=== PATIENT | male | born 1940 | race Caucasian/White ===

== ENCOUNTER 2016-10-08 13:23 | Inpatient (IN) | payer OTHER, MEDICARE ==
[~2016-10-08] VITALS: Ht 177.8 cm; Wt 95.3 kg
--- NOTE | 2016-10-08 13:30 | NUR ---
BIBA FROM HOME FOR COLD/URI SYMPTOMS X5 DAYS. ARRIVES WITH GOOD COLORING, O2 SAT 96% RA AND NO ACTIVE COUGHING OR RESPIRATORY DISTRESS OBSERVED. R SIDED HEMIPARALYSIS/WEAKNESS S/P CVA 2 YEARS AGO. DENIES CP/SOB. OFFERS NO OTHER COMPLAINTS.
--- NOTE | 2016-10-08 13:37 | ED INFLUENZA/URI COMPLAINT ---
History of Present Illness General Chief Complaint: Upper Respiratory Sx/Fever Stated Complaint: BIBA COLD SYMPTOMS X5 DAYS Source: patient Exam Limitations: no limitations Allergies Coded Allergies: No Known Allergies (10/08/16) Reconcile Medications Amlodipine Besylate 5 MG TABLET 1 TAB PO DAILY HTN (Reported) Aspirin (Ecotrin*) 81 MG TABLET.DR 1 TAB PO DAILY HEART HEALTH (Reported) Atorvastatin Calcium 80 MG TABLET 1 TAB PO Q5PM CHOLESTEROL (Reported) Docusate Sodium (Colace) 100 MG CAPSULE 1 CAP PO DAILY STOOL SOFTENER ( Reported) Insulin Regular, Human (Humulin R) 100 UNIT/ML VIAL DIABTETES (Reported) 9AM 11 UNITS, LUNCH 10 UNITS, DINNER 8 UNITS Lisinopril 2.5 MG TABLET 1 TAB PO DAILY HTN (Reported) Metoprolol Tartrate 25 MG TABLET 1 TAB PO BID HTN (Reported) Multivitamin (Multivitamins) 1 EACH CAPSULE 1 TAB PO DAILY VITAMIN (Reported) Omeprazole 20 MG CAPSULE.DR 1 TAB PO DAILY GERD (Reported) Quetiapine Fumarate 25 MG TABLET 1 TAB PO QHS PRN SLEEP (Reported) Triage Note: BIBA FROM HOME FOR COLD/URI SYMPTOMS X5 DAYS. ARRIVES WITH GOOD COLORING, O2 SAT 96% RA AND NO ACTIVE COUGHING OR RESPIRATORY DISTRESS OBSERVED. R SIDED HEMIPARALYSIS/WEAKNESS S/P CVA 2 YEARS AGO. DENIES CP/SOB. OFFERS NO OTHER COMPLAINTS. Triage Nurses Notes Reviewed? yes Onset: Gradual Duration: constant Timing: recent history Severity: moderate Severity Numbers: 5 HPI: Patient is a 76-year-old male with a past medical history of hyperlipidemia hypertension diabetes and stroke 2 years ago with right-sided upper extremity and lower extremity deficit currently wheelchair bound who presents emergency room brought in by ambulance from private residence for concerns of a 5 day history of not feeling well cough chills body aches head congestion and generalized weakness and fatigue. Patient denies any fever, sore throat, chest pain and arm pain jaw pain nausea vomiting palpitations diaphoresis hemoptysis or shortness of breath. Positive sick contacts at home (GISELLE DO,ADRIANA) Vital Signs & Intake/Output Vital Signs & Intake/Output Vital Signs Date Time Temp Pulse Resp B/P Pulse O2 O2 Flow FiO2 Ox Delivery Rate 10/08 1559 92 18 146/84 95 Room Air 10/08 1401 96 Room Air 10/08 1326 99.1 95 18 132/66 98 Room Air Past History Travel History Traveled to [place] past 21 day No Medical History Any Pertinent Medical History? see below for history Neurological: CVA, R SIDED WEAKNESS EENT: NONE Cardiovascular: NONE Respiratory: NONE Gastrointestinal: NONE Hepatic: NONE Renal: NONE Musculoskeletal: NONE Psychiatric: NONE Endocrine: NONE Blood Disorders: NONE Cancer(s): NONE Other Medical Hx: Diabetes, hypertension, hyperlipidemia Surgical History Surgical History: non-contributory Psychosocial History What is your primary language Irish Tobacco Use: Never used Family History Hx Contributory? No (ADRIANA MITCHELL) Review of Systems Review of Systems Constitutional: Reports: see HPI, malaise, weakness. EENTM: Reports: no symptoms. Respiratory: Reports: see HPI, cough. Cardiovascular: Reports: no symptoms. GI: Reports: no symptoms. Genitourinary: Reports: no symptoms. Musculoskeletal: Reports: no symptoms. Skin: Reports: no symptoms. Neurological/Psychological: Reports: no symptoms. Hematologic/Endocrine: Reports: no symptoms. Immunologic/Allergic: Reports: no symptoms. All Other Systems: Reviewed and Negative (ADRIANA MITCHELL) Physical Exam Physical Exam General Appearance: no apparent distress, alert, comfortable Ears, Nose, Throat: normal ENT inspection, moist mucous membrane, hearing grossly normal, Tympanic normal Comments: person in no acute distress HEENT: Normal EENT exam, extraocular motion intact, no nystagmus. Pupils equally round and reactive to light and accommodation. Nose is atraumatic. External auditory canal and Tympanic membranes clear. Pharynx normal. No swelling or edema. Neck: Supple, no lymphadenopathy, normal range of motion without pain or tenderness Back: Nontender, no CVA tenderness. Cardiovascular: Regular rate and rhythms no murmurs rubs or gallops, normal JVP Respiratory: Chest nontender. No respiratory distress. Decreased breath sounds clear to auscultation bilaterally Abdomen: Soft, nontender nondistended, no appreciable organomegaly. Normal bowel sounds. No ascites Extremity: No edema, no calf tenderness to palpation, normal and equal pulses. Neuro: Alert oriented x3, Skin: No appreciable rash on exposed skin, skin is warm and dry. Psych: Mood and affect is normal, memory and judgment is normal. Core Measures Severe Sepsis Present: No Septic Shock Present: No (ADRIANA MITCHELL) Progress Differential Diagnosis: influenza, meningitis, neutropenia, otitis, pneumonia, pharyngitis, sinusitis, ACUTE KIDNEY INJURY, SEPSIS, Diagnostic Imaging: Viewed by Me: Radiology Read. CXR Impression: no acute abnormality Initial ED EK BPM NORMAL SINUS RHYTHM Comments: PATIENT: RAHAT CEVALLOS PRESENT AGE: 76 PATIENT ACCOUNT NO: [id number] : 40 LOCATION: [facility] ORDERING PHYSICIAN: ADRIANA DO SERVICE DATE: 10/08/16 EXAM TYPE: RAD - XRY-PORTABLE CHEST XRAY EXAMINATION: XR PORTABLE CHEST CLINICAL INFORMATION: Cough. COMPARISON: No relevant prior imaging available. TECHNIQUE: AP portable upright view of the chest was obtained. FINDINGS: Lung volumes are low. There is no focal consolidative disease, pleural effusion, or pneumothorax. The cardiac silhouette and upper mediastinal contours are normal. No acute osseous finding. IMPRESSION: Low lung volumes. Otherwise unremarkable examination with no evidence of consolidative disease or effusion. DICTATED BY: BRENDA CLEMENT,HOLLY Abarca DATE/TIME DICTATED:10/08/16 1439 (GISELLE DO,ADRIANA) Plan of Care: Orders Procedure Date/time Status LACTIC ACID 10/08 1643 Active Admit to inpatient 10/08 1604 Active URINALYSIS 10/08 1347 Active RAPID VIRAL INFLUENZA A 10/08 1343 Complete LOWER RESPIRATORY CULTURE 10/08 1343 Active BLOOD CULTURE 10/08 1343 Active TROPONIN LEVEL 10/08 1343 Complete LACTIC ACID 10/08 1343 Complete COMPREHENSIVE METABOLIC PANEL 10/08 1343 Complete CBC WITHOUT DIFFERENTIAL 10/08 1343 Complete EKG 10/08 1339 Active Laboratory Tests 10/08/16 1356: Anion Gap 16, Estimated GFR 35 L, BUN/Creatinine Ratio 17.4, Glucose 198 H, Lactic Acid 2.8 H, Calcium 9.2, Total Bilirubin 0.7, AST 38, ALT 41, Alkaline Phosphatase 105, Troponin I < 0.01, Total Protein 7.3, Albumin 3.9, Globulin 3.4 , Albumin/Globulin Ratio 1.1 10/08/16 1350: CBC w Diff NO MAN DIFF REQ, RBC 5.61, MCV 87.3, MCH 28.2, RDW 16.0 H, MPV 8.8, Gran % 63.4, Lymphocytes % 17.5 L, Monocytes % 17.3 H, Eosinophils % 1.4, Basophils % 0.4, Absolute Granulocytes 6.1, Absolute Lymphocytes 1.7, Absolute Monocytes 1.7 H, Absolute Eosinophils 0.1, Absolute Basophils 0, PUBS MCHC 32.3 L Microbiology 10/08 1441 NASOPHARYN: Influenza Virus A & B Rapid Smear - COMP 10/08 1412 BLOOD: Blood Culture - RECD 10/08 1356 BLOOD: Blood Culture - RECD 10/08 1343 LOWER RESP: Respiratory Culture - ORD 10/08 1343 LOWER RESP: Gram Stain - ORD Patient on the initial examination was in no apparent distress afebrile nontoxic appearing due to history of present illness of patient's significant weakness and malaise and unable to transfer and perform active daily living there is considerable fall risk However patient does have concerns of dehydration and upper respiratory infection and acute kidney injury. patient's symptoms are LIKELY viral in nature and which guaifenesin will be administered and IV fluid resuscitation (ADRIANA MITCHELL) Departure Departure Disposition: STILL A PATIENT Condition: Stable Clinical Impression Primary Impression: FELIX (acute kidney injury) Secondary Impressions: Dehydration, Upper respiratory disease, Weakness Referrals: ASHOK QUINN MD Departure Forms: Customer Survey General Discharge Information Admission Note Spoke With: PAMELA POWER MD Documentation of Exam: Documentation of any treatments & extenuating circumstances including Concerns Regarding Discharge (functional status, medication knowledge or non-compliance, living conditions, etc.) that warrant an admission rather than observation: [ Discussed patient with Dr. POWER who agrees with general medicine admission for concerns of acute kidney injury and upper respiratory infection. Patient requires slow fluid IV resuscitation, antitussives medication, repeat labs especially creatinine function and physical therapy evaluation.] (ADRIANA MITCHELL) PA/CUT AND COVER LINE WORKER Co-Sign Statement Statement: ED Attending supervision documentation- [X] I saw and evaluated the patient. I have also reviewed all the pertinent lab results and diagnostic results. I agree with the findings and the plan of care as documented in the PA's/CUT AND COVER LINE WORKER's documentation. [] I have reviewed the ED Record and agree with the PA's/CUT AND COVER LINE WORKER's documentation. [] Additions or exceptions (if any) to the PAs/CUT AND COVER LINE WORKER's note and plan are summarized below: [] (DELMY CLEMENT,KAYA Blake)
--- NOTE | 2016-10-08 13:38 | NUR ---
[facility] AT BEDSIDE FOR EVALUATION
[2016-10-08] MEDS ORDERED: LISINOPRIL2.5 M1 PO (13:53)
[2016-10-08] MEDS ORDERED: HUMULIN R100 UNIT/1 SC (13:54)
[2016-10-08] MEDS ORDERED: QUETIAPINE FUMA25 M1 PO (13:54)
[2016-10-08] MEDS ORDERED: AMLODIPINE BESYL5 M1 PO (13:55)
[2016-10-08] MEDS ORDERED: METOPROLOL TART25 M1 PO (13:55)
[2016-10-08] MEDS ORDERED: ATORVASTATIN CA80 M1 PO (13:55)
[2016-10-08] MEDS ORDERED: OMEPRAZOLE20 M2 PO (13:56)
[2016-10-08] MEDS ORDERED: COLACE100 M1 PO (13:57)
[2016-10-08] MEDS ORDERED: MULTIVITAMINS1 EAC8 PO (13:57)
[2016-10-08] MEDS ORDERED: ASPIRIN EC81 M1 PO (13:58)
--- NOTE | 2016-10-08 13:58 | NUR ---
IMMEDIATELY ASKING ABOUT LENGTH OF STAY AND REQUEST FOR DISCHARGE TO [facility]. INFORMED THAT ONCE TESTS COMPLETED AND DISPO DETERMINED WE WILL BE ABLE TO PLAN FOR AFTERCARE. MED RECONCILIATION COMPLETED
[2016-10-08 14:23] LABS: ABSOLUTE BASOPHIL COUNT 0 /CUMM (0.0-0.2); ABSOLUTE EOSINOPHIL COUNT 0.1 /CUMM (0.0-0.7); ABSOLUTE GRANULOCYTE CT 6.1 /CUMM (1.4-6.5); ABSOLUTE LYMPH COUNT 1.7 /CUMM (1.2-3.4); ABSOLUTE MONOCYTE COUNT 1.7 /CUMM (0.10-0.60); BASOPHIL % 0.4 % (0.0-2.0); EOSINOPHIL % 1.4 % (0-5); GRANULOCYTE % 63.4 % (42.2-75.2); MEAN CORPUSCULAR HGB 28.2 PG (27.0-31.0); MEAN CORPUSCULAR HGB CONC 32.3 G/DL (33.0-37.0); MEAN CORPUSCULAR VOLUME 87.3 FL (80.0-94.0); MEAN PLATELET VOLUME 8.8 FL (7.4-10.4); PLATELET COUNT 142 /CUMM (130-400); RED BLOOD CELL CT 5.61 /CUMM (4.70-6.10); WHITE BLOOD CELL COUNT 9.6 /CUMM (4.8-10.8)
--- NOTE | 2016-10-08 14:30 | NUR ---
CRITICAL TEST RESULTS [id number] RAHAT CEVALLOS 76 M TESTS AND RESULTS: LACTIC ACID 2.8 Results received and read back by: GLENDA RICHTER Results received date and time: 10/08/16 1442 The following provider was notified of the results, and read the results back: ADRIANA DO Notified date and time: 10/08/16 at 1430
--- NOTE | 2016-10-08 14:44 | RADIOLOGY REPORT ---
EXAMINATION: XR PORTABLE CHEST CLINICAL INFORMATION: Cough. COMPARISON: No relevant prior imaging available. TECHNIQUE: AP portable upright view of the chest was obtained. FINDINGS: Lung volumes are low. There is no focal consolidative disease, pleural effusion, or pneumothorax. The cardiac silhouette and upper mediastinal contours are normal. No acute osseous finding. IMPRESSION: Low lung volumes. Otherwise unremarkable examination with no evidence of consolidative disease or effusion.
--- NOTE | 2016-10-08 14:46 | NUR ---
FLU SWAB OBTAINED AND SENT. PT INFORMED OF NEED FOR URINE SAMPLE, AWAITING TO DETERMINE FROM [facility] WHETHER ST CATH OR INDWELLING ALEJANDRE INDICATED FOR INSERTION
--- NOTE | 2016-10-08 15:51 | NUR ---
PT CLEANED OF MEDIUM SIZED SOFT BROWN BOWEL MOVEMENT. DARK YELLOW URINE STAINED TO BRIEF OBSERVED. PT UNABLE TO IDENTIFY WHEN HE HAS TO VOID. UNABLE TO STRAIGHT CATH FOR URINE SAMPLE DUE TO SIGNIFICANTLY ENLARGED PROSTATE. MULTIPLE ATTEMPTS MADE USING COUDET TIP CATH.
--- NOTE | 2016-10-08 16:55 | NUR ---
MEDICATED WITH MUCINEX PER eMAR. FOOD TRAY ORDERED. ACCUCHECK [id number]
--- NOTE | 2016-10-08 17:04 | History & Physical ---
JAMSHID MEDINA 10/08/16 1703: General Information and HPI MD Statement: I have seen and personally examined RAHAT CEVALLOS and documented this H&P. 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 Came to ED for evaluation of cough and weakness. Status spoke to get collateral information as well. Since the past 5 days patient has been having some cough with yellowish expectoration. has noticed that he has been weaker than usual during those days as well. No fever was documented at home. also has similar symptoms Denies chest pain, palpitations, shortness of breath, abdominal pain, dysuria. Mr. Cevallos lives at home with his who does most of the care for him and they do have an aide that comes to help once in a while. His stated that they're finding difficulty taking care of him as he is considerably weaker from his baseline. Allergies/Medications Allergies: Coded Allergies: No Known Allergies (10/08/16) Home Med list Amlodipine Besylate 5 MG TABLET 1 TAB PO DAILY HTN (Reported) Aspirin (Ecotrin*) 81 MG TABLET. 1 TAB PO DAILY HEART HEALTH (Reported) Atorvastatin Calcium 80 MG TABLET 1 TAB PO Q5PM CHOLESTEROL (Reported) Docusate Sodium (Colace) 100 MG CAPSULE 1 CAP PO DAILY STOOL SOFTENER ( Reported) Insulin Regular, Human (Humulin R) 100 UNIT/ML VIAL DIABTETES (Reported) 9AM 11 UNITS, LUNCH 10 UNITS, DINNER 8 UNITS Lisinopril 2.5 MG TABLET 1 TAB PO DAILY HTN (Reported) Metoprolol Tartrate 25 MG TABLET 1 TAB PO BID HTN (Reported) Multivitamin (Multivitamins) 1 EACH CAPSULE 1 TAB PO DAILY VITAMIN (Reported) Omeprazole 20 MG CAPSULE. 1 TAB PO DAILY GERD (Reported) Quetiapine Fumarate 25 MG TABLET 1 TAB PO QHS PRN SLEEP (Reported) Compliance With Home Meds: GOOD Past History Travel History Traveled to [place] past 21 day No Medical History Neurological: CVA, R SIDED WEAKNESS EENT: NONE Cardiovascular: hypertension, hyperlipidemia Respiratory: NONE Gastrointestinal: GERD Hepatic: NONE Renal: NONE Musculoskeletal: NONE Psychiatric: anxiety Endocrine: diabetes Blood Disorders: NONE Cancer(s): NONE Other Medical Hx: Diabetes, hypertension, hyperlipidemia Surgical History Surgical History: non-contributory Past Family/Social History Psychosocial History Where do you live? Home Who Do You Live With? spouse Primary Language: Albanian Smoking Status: Never Smoked ETOH Use: denies use Functional Ability ADLs Independent: dressing, eating, toileting, bathing. Ambulation: non-ambulatory IADLs Independent: shopping, housework, finances, food prep, telephone, transportation , medication admin. Review of Systems Review of Systems Constitutional: Denies: chills, diaphoresis, fever, malaise, weakness, unexplained weight loss. Cardiovascular: Denies: chest pain, edema, orthopena, palpitations, peripheral edema, syncope. Respiratory: Reports: cough, sputum production. Denies: hemoptysis, orthopnea, short of breath, stridor, wheezing. Exam & Diagnostic Data Last 24 Hrs of Vital Signs/I&O Vital Signs Date Time Temp Pulse Resp B/P Pulse O2 O2 Flow FiO2 Ox Delivery Rate 10/08 1925 99.1 90 18 144/88 96 Room Air 10/08 1823 98.7 85 155/90 96 Room Air 10/08 1810 96 Room Air 10/08 1624 99.4 10/08 1559 92 18 146/84 95 Room Air 10/08 1401 96 Room Air 10/08 1326 99.1 95 18 132/66 98 Room Air Intake & Output 10/08 1600 10/08 0800 10/08 0000 Intake Total Output Total Balance Patient 200 lb Weight Physical Exam General Appearance Alert, Cooperative, No Acute Distress, oriented to person and place only Skin No Breakdown, No Significant Lesion HEENT PERRLA, EOMI, dry mucous membranes Neck Supple, No JVD, No thryomegaly, +2 Carotid Pulse wo Bruit Lymphatic Cervical nl Cardiovascular Normal S1, Normal S2 Lungs Clear to Auscultation, Normal Air Movement Abdomen Normal Bowel Sounds, Soft, No Tenderness Neurological Normal Speech, strength 5 out of 5 in upper and lower left extremity 0 out of 5 right lower extremity 3 out of 5 right upper extremity Extremities No Edema Diagnostic Data CXR Results SERVICE DATE: 10/08/16 EXAM TYPE: RAD - XRY-PORTABLE CHEST XRAY IMPRESSION: Low lung volumes. Otherwise unremarkable examination with no evidence of consolidative disease or effusion. 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 Came to ED for evaluation of cough and weakness. Problem list Stroke with residual neurological deficit Deconditioning Upper respiratory infection Diabetes Hypertension Assessment Admit to general medicine floor Weakness could be secondary to decreased by mouth intake/dehydration At this time his symptoms seems more likely viral so we'll keep him off antibiotics for now Gentle IV hydration Monitor fingersticks, insulin sliding scale Discontinued home meds of Lopressor, lisinopril, Norvasc Seroquel, statin, Prilosec, Colace, aspirin DVT prophylaxis with subcutaneous heparin DNR/DNI As Ranked By This Provider Problem List: 1. Upper respiratory disease 2. Weakness Core Measures/Miscellaneous Acute Coronary Syndrome ACS Diagnosis: No Cerebrovascular Accident CVA/TIA Diagnosis: No Congestive Heart Failure CHF Diagnosis: No Venous Thromboembolism VTE Risk Factors: Age > 40, Immobility, paresis [facility] prophylaxis d/t: No contraindications No VTE Pharm Prophylaxis d/t: No contraindications VTE Diagnosis: No VTE Type: NONE VTE Confirmed by (Test): NONE Severe Sepsis Severe Sepsis Present: No Septic Shock Septic Shock Present: No Miscellaneous Documentation Attending Case Discussed With: PAMELA POWER MD Primary Care Physician: NITIN YOU MD Patient sees these Specialists none Level of Patient Care: General Medicine PAMELA POWER MD 10/08/162: Attending MD Review Statement Attending Statement Attending MD Statement: examined this patient, discuss w/resident/PA/KENNEL ATTENDANT, agreed w/resident/PA/KENNEL ATTENDANT, reviewed EMR data (avail) Attending Assessment/Plan: 76M PMH HTN, HLD with 3 days of productive cough with yellow sputum, shortness of breath, dyspnea on exertion, generalized weakness, unsteady gait, decreased PO intake, and dehydration. Patient reports feeling ill for the past few days, has been sick for the past few days, no recent travel. Afebrile, normal vitals, WBC normal, lactate 2.8, creatinine 1.9 (unknown baseline), EKG NSR, CXR normal. 1. FELIX 2. Lactic acidosis 3. Dehydration 4. Acute URI Plan - Admit to general medicine - IV hydration - Trend lactatee q4h until normal - Monitor renal function - Obtain prior records - Continue home medications - PT eval - DVT PPx RACHID CLEMENTREKHA 10/08/162121: Resident Review Statement Resident Statement: examined this patient, discussed with resident intern, agreed with resident intern Other Findings: 76-YO M with past medical history significant for hypertension, diabetes, stroke with residual paresis and left facial drooping. Arrived from home with complaints of ongoing cough with yellow sputum production, lethargy, and diarrheal episodes for the past 3 days. He is essentially bedbound since his stroke and uses a wheelchair for mobility. Problem list Stroke with residual neurological deficit Deconditioning Upper respiratory infection Diabetes Hypertension FELIX Assessment Admit to general medicine floor, provide hydration with IVF as appears to have poor oral intake Weakness could be secondary to decreased by mouth intake/dehydration lactic acid 2.8 will recheck after hydration Will hold off on abx at this time, cxr negative, wbc wnl, monitor cultures drawn in ER Monitor fingersticks, insulin sliding scale continue lopressor, lisinopril, Norvasc Seroquel, statin, Prilosec, Colace, aspirin DVT prophylaxis with subcutaneous heparin monitor renal function, Cr 1.9 and check in am after hydration PT consultation as appears to be below baseline according to family members DNR/DNI
--- NOTE | 2016-10-08 17:28 | NUR ---
TWO REPEAT LACTICS DRAWN AND SENT DUE TO HEMOLYZATION
--- NOTE | 2016-10-08 17:46 | NUR ---
HOUSE STAFF AT BEDSIDE FOR EVALUATION
--- NOTE | 2016-10-08 18:52 | NUR ---
FOOD TRAY AND ICE WATER PROVIDED
--- NOTE | 2016-10-08 19:09 | NUR ---
BED ASSIGNMENT [id number]
--- NOTE | 2016-10-08 19:45 | NUR ---
REPORT GIVEN TO RECEIVING RN AND DISTRIBUTION CALLED
[2016-10-08 20:29] VITALS: BP 122/72
--- NOTE | 2016-10-08 21:35 | NUR ---
NSG NOTE: PT ARRIVED TO FLOOR WITH DISTRIBUTION FROM ER. PT AWAKE, A/OX3, ON ROOM AIR, HX CVA WITH RIGHT SIDED WEAKNESS, PT DENIES PAIN, INCONTINENT OF LARGE AMOUNTS OF URINE, ALPS IN PLACE, BED ALARM IN PLACE, PT ORIENTED TO ROOM AND CALL BROCK WITHIN REACH. WILL MONITOR.
--- NOTE | 2016-10-09 06:43 | PN- Housestaff ---
ONIELZHANG HOLTMELANIETimothy 10/09/16 0643: Subjective Follow-up For: URI Deconditioning History of stroke with neurological deficit Subjective: Seen and examined patient. Offers no complaints. States that his breathing is improved. Denies shortness of breath, chills, chest pain, cough. Review of Systems Constitutional: Denies: chills, diaphoresis, fever, malaise, weakness, unexplained weight loss. Respiratory: Denies: cough, hemoptysis, orthopnea, short of breath, sputum production, stridor, wheezing. Objective Last 24 Hrs of Vital Signs/I&O Vital Signs Date Time Temp Pulse Resp B/P Pulse O2 O2 Flow FiO2 Ox Delivery Rate 10/09 1040 71 130/96 10/09 1040 71 130/96 10/09 1040 71 130/96 10/09 0650 98.3 83 20 152/88 95 Room Air 10/08 2158 70 150/80 10/08 2157 70 150/80 10/08 2157 70 150/80 10/08 2029 98.2 90 20 122/72 96 Room Air 10/08 1925 99.1 90 18 144/88 96 Room Air 10/08 1823 98.7 85 155/90 96 Room Air 10/08 1810 96 Room Air 10/08 1624 99.4 10/08 1559 92 18 146/84 95 Room Air Intake & Output 10/09 1600 10/09 0800 10/09 0000 Intake Total 1080 240 Output Total Balance 1080 240 Intake, IV 600 Intake, Oral 480 240 Number 2 Bowel Movements Patient 210 lb Weight Physical Exam General Appearance: Alert, Oriented X3, Cooperative, No Acute Distress Cardiovascular: Regular Rate, Normal S1, Normal S2 Lungs: bilateral decreased breath sounds Neurological: right hemiparesis Extremities: No Edema Current Medications: Current Medications Sig/Gavin Start time Last Medication Dose Route Stop Time Status Admin Acetaminophen 650 MG Q6P PRN 10/08 1900 AC PO Amlodipine Besylate 5 MG DAILY 10/08 2005 AC 10/09 PO 1040 Aspirin Buffered 81 MG DAILY 10/09 1000 AC 10/09 PO 1040 Atorvastatin Calcium 80 MG 1700 10/08 2014 AC 10/08 PO 2158 Docusate Sodium 100 MG DAILY 10/09 1000 AC 10/09 PO 1040 Guaifenesin 600 MG ONCE ONE 10/08 1630 DC 10/08 PO 10/08 1631 1655 Heparin Sodium 5,000 UNIT Q8 10/08 2200 AC 10/09 (Porcine) SC 1344 Ibuprofen 600 MG Q6P PRN 10/08 190 AC PO Insulin Aspart 0 TIDAC 10/09 0800 AC 10/09 SC 1344 Lisinopril 2.5 MG DAILY 10/08 2004 AC 10/09 PO 1040 Metoprolol Tartrate 25 MG BID 10/08 2200 AC 10/09 PO 1040 Omeprazole 20 MG DAILY 10/09 1000 AC 10/09 PO 1040 Quetiapine Fumarate 25 MG AT BEDTIME NEED.. 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 Current admission for cough and weakness remains Afebrile, normal vitals, WBC normal, lactate 2.8, creatinine 1.9 (unknown baseline), EKG NSR, CXR normal. Problem list URI Deconditioning Plan URI more likely viral in nature we'll continue to monitor off antibiotics at this time, remains afebrile PT worked with him today and he requires 2 person assist, continue to work with PT. Creatinine improved with IV fluids, continue home meds of Lopressor, lisinopril, Norvasc Seroquel, statin, Prilosec, Colace, aspirin DVT prophylaxis with subcutaneous heparin DNR/DNI Problem List: 1. Weakness 2. Upper respiratory disease 3. FELIX (acute kidney injury) Pain Ratin Pain Location: Not applicable Pain Goal: Pain 4 or less Pain Plan: Current regimen Tomorrow's Labs & Rationales: None required [place]O LAWS MD 10/09/16 1400: Attending MD Review Statement Attending Statement Attending MD Statement: examined this patient, discuss w/resident/PA/MEDICAL RECEPTIONIST BILLER, agreed w/resident/PA/MEDICAL RECEPTIONIST BILLER, reviewed EMR data (avail), discussed with nursing, discussed with case mgmt, amended to note Attending Assessment/Plan: Patient seen and examined. Lying down comfortably in bed not in any distress whatsoever. He reports feeling better. He denies any chest pain or shortness of breath. Denies any cough this morning. He is afebrile and hemodynamically stable. He is not requiring oxygen supplementation. On auscultation his lungs are clear bilaterally. It appears that his symptoms were secondary to upper respiratory viral infection. He does not require antibiotic therapy at present. At baseline patient is mobilized by his alone. He has right-sided any plegia secondary to his stroke. However due to his upper respiratory infection he has become condition require more assistance. He was seen by the physical therapy service and noted to require 2 person assistance. At this point he is not deemed safe enough to return home particularly with his current level of care. Recommendations: -Continue physical therapy while in the hospital with anticipation of patient improving significantly enough to be discharged back home in a safe manner. -Case discussed with case management to assist in securing more services for patient at home. -If one able to achieve either of the above he may require to go to group home facility for short-term rehabilitation. -We will continue assessing the hospital for improvement of his deconditioned state. -There is no need for antibiotic therapy presently. -His renal function has improved with IV hydration. Recommend obtaining records from his primary care provider to determine his baseline creatinine level. -No need for repeat labs tomorrow.
[2016-10-09 06:50] VITALS: BP 152/88
--- NOTE | 2016-10-09 10:35 | NUR ---
PHYSICAL THERAPY: ATTEMPTED TO SEE PT THIS AM FOR P.T. EVALUATION. PT REFUSING, STATING THAT HE "CAN" PARTICIPATE BUT DOES NOT "WANT TO." PT REQUESTING THAT P.T. RETURNS IN "A COUPLE HOURS" AND HE WILL COMPLY AT THAT TIME. WILL FOLLOW UP APPROPRIATE. THANK YOU.
[2016-10-09 14:37] VITALS: BP 123/67
[2016-10-09 22:59] VITALS: BP 130/92
[2016-10-10 07:00] VITALS: BP 144/80
--- NOTE | 2016-10-10 07:05 | PN- Housestaff ---
JAMSHID MEDINA 10/10/16 0704: Subjective Follow-up For: URI Deconditioning History of stroke with neurological deficit Subjective: Seen and examined patient. Offers no complaints. Denies shortness of breath, chills, chest pain, cough. Review of Systems Constitutional: Denies: chills, diaphoresis, fever, malaise, weakness, unexplained weight loss. Cardiovascular: Denies: chest pain, edema, orthopena, palpitations, peripheral edema, syncope. Respiratory: Denies: cough, hemoptysis, orthopnea, short of breath, sputum production, stridor, wheezing. Objective Last 24 Hrs of Vital Signs/I&O Vital Signs Date Time Temp Pulse Resp B/P Pulse O2 O2 Flow FiO2 Ox Delivery Rate 10/10 0700 99.4 88 22 144/80 96 Room Air 10/09 2259 99.7 83 20 130/92 94 Room Air 10/09 2222 160/90 10/09 1437 98.6 67 20 123/67 97 Room Air 10/09 1040 71 130/96 10/09 1040 71 130/96 10/09 1040 71 130/96 Intake & Output 10/10 1600 10/10 0800 10/10 0000 Intake Total 10 400 Output Total Balance 10 400 Intake, IV 10 Intake, Oral 0 400 Number 0 Bowel Movements Physical Exam General Appearance: Alert, Cooperative, No Acute Distress Cardiovascular: Normal S1, Normal S2 Lungs: Normal Air Movement Abdomen: Soft, No Tenderness Extremities: No Edema Current Medications: Current Medications Sig/Gavin Start time Last Medication Dose Route Stop Time Status Admin Acetaminophen 650 MG Q6P PRN 10/08 1900 AC PO Amlodipine Besylate 5 MG DAILY 10/08 2005 AC 10/09 PO 1040 Aspirin Buffered 81 MG DAILY 10/09 1000 AC 10/09 PO 1040 Atorvastatin Calcium 80 MG 1700 10/08 PO 1725 Docusate Sodium 100 MG DAILY 10/09 1000 AC 10/09 PO 1040 Heparin Sodium 5,000 UNIT Q8 10/08 2200 AC 10/10 (Porcine) SC 0601 Ibuprofen 600 MG Q6P PRN 10/08 1900 AC PO Insulin Aspart 0 TIDAC 10/09 0800 AC 10/09 SC 1725 Lisinopril 2.5 MG DAILY 10/08 2004 AC 10/09 PO 1040 Metoprolol Tartrate 25 MG BID 10/08 2200 AC 10/09 PO 2222 Omeprazole 20 MG DAILY 10/09 1000 AC 10/09 PO 1040 Quetiapine Fumarate 25 MG AT BEDTIME NEED.. 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 Current admission for cough and weakness remains Afebrile, normal vitals, WBC normal, lactate 2.8, creatinine 1.9 (unknown baseline), EKG NSR, CXR normal. Problem list: URI Deconditioning Plan: URI more likely viral in nature we'll continue to monitor off antibiotics at this time, remains afebrile PT worked with him today and he requires 2 person assist, continue to work with PT. continue home meds of Lopressor, lisinopril, Norvasc Seroquel, statin, Prilosec, Colace, aspirin Spoke to Dr. Cullen's office regarding his creatinine level, (1.5-1.7 baseline) DVT prophylaxis with subcutaneous heparin DNR/DNI Dispostion to STR Problem List: 1. Upper respiratory disease 2. Weakness Pain Ratin Pain Location: na Pain Goal: Pain 4 or less Pain Plan: current regimen Tomorrow's Labs & Rationales: bep to monitor creatinine VETO CLEMENT,[place] 10/10/16 0938: Attending Review Statement Attending Statement Attending Statement: examined this patient, discuss w/resident/PA/IT FIELD TECHNICIAN, agreed w/resident/PA/IT FIELD TECHNICIAN, reviewed EMR data (avail), discussed with nursing, discussed with case mgmt, amended to note Attending Assessment/Plan: She is seen and examined. Resting comfortably and not in any distress. No issues overnight reported by nursing staff. Patient reports very good appetite. Denies any pain. Denies any difficulty breathing. He is not requiring oxygen supplementation. On examination lungs are clear bilaterally. Case was discussed with the physical therapy service. Their impression is that patient is too deconditioned to return home safely despite additional services. Their recommendation is for patient to be discharged to [facility] facility for short-term rehabilitation. Recommendations: - Since he has not been deemed safe to return home he'll remain in the hospital until a [facility] facility has accepted him. -Repeat serum chemistry in a.m. to ensure that creatinine is still trending downwards. A secure records from his primary care provider to determine his baseline levels.
--- NOTE | 2016-10-10 10:13 | NUR ---
PHYSICAL THERAPY: PT REFUSING TO PARTICIPATE IN P.T. DESPITE MAX ENCOURAGEMENT/MOTIVATION. PT EDUCATED ON THE BENEFITS OF GETTING OUT OF BED, BUT CONTINUES TO REFUSE TX. WILL ATTEMPT TO SEE PT AGAIN THIS AFTERNOON. THANK YOU.
--- NOTE | 2016-10-10 13:26 | PN- Student ---
Subjective Subjective: 76yo male with PMHx significant for right-sided hemiparesis s/p CVA in 08/2014, HTN, and DM admitted for productive cough and deconditioning in the setting of URI. No overnight events. This morning, pt reports cough is improving, but remains productive of yellow phlegm. Denies chest pain, SOB, abd pain. Denies increased weakness. Pt refuses to use leg compression wraps due to discomfort. Objective Objective: Vital Signs Date Time Temp Pulse Resp B/P Pulse O2 O2 Flow FiO2 Ox Delivery Rate 10/10 1435 98.8 66 18 116/67 97 Room Air 10/10 1057 Room Air 10/10 0912 306 144/80 10/10 0911 144/80 10/10 0911 88 144/80 10/10 0700 99.4 88 22 144/80 96 Room Air 10/09 2259 99.7 83 20 130/92 94 Room Air 10/09 2222 160/90 Physical Exam Gen: elderly male with right-sided hemiparesis, resting comfortably in bed, NAD CV: S1S1, regular rate and rhythm, no murmurs/rubs/gallops Pulm: exam limited by poor inspiratory effort and need for assitance to lean forward in bed, soft breath sounds, CTABL Abd: non-distended, soft, non-tender to palpation Ext: no pedal edema Skin: dry, well-perfused Neuro: right-sided hemiparesis, no change to neural deficits Psych: AAOx3, broad affect Current Medications Sig/Gavin Start time Last Medication Dose Route Stop Time Status Admin Acetaminophen 650 MG Q6P PRN 10/08 1900 AC PO Amlodipine Besylate 5 MG DAILY 10/08 2005 AC 10/10 PO 0911 Aspirin Buffered 81 MG DAILY 10/09 1000 AC 10/10 PO 0912 Atorvastatin Calcium 80 MG 1700 10/08 2014 AC 10/09 PO 1725 Docusate Sodium 100 MG DAILY 10/09 1000 AC 10/10 PO 0912 Heparin Sodium 5,000 UNIT Q8 10/080 AC 10/10 (Porcine) SC 0601 Ibuprofen 600 MG Q6P PRN 10/08 1900 AC PO Insulin Aspart 0 TIDAC 10/09 0800 AC 10/10 SC 0911 Lisinopril 2.5 MG DAILY 10/08 2004 AC 10/10 PO 0911 Metoprolol Tartrate 25 MG BID 10/08 2200 AC 10/10 PO 0912 Omeprazole 20 MG DAILY 10/09 1000 AC 10/10 PO 0911 Quetiapine Fumarate 25 MG AT BEDTIME NEED.. 10/08 2014 PO Results Results: Laboratory Tests 10/09 10/08 10/08 10/08 0730 1723 1356 1350 Chemistry Sodium (137 - 145 mmol/L) 136 L 143 Potassium (3.5 - 5.1 mmol/L) 4.3 4.8 Chloride (98 - 107 mmol/L) 104 105 Carbon Dioxide (22 - 30 mmol/L) 21 L 22 Anion Gap (5 - 16) 11 16 BUN (9 - 20 mg/dL) 30 H 33 H Creatinine (0.7 - 1.2 mg/dL) 1.6 H 1.9 H Estimated GFR (>60 ml/min) 42 L 35 L BUN/Creatinine Ratio (7 - 25 %) 18.8 17.4 Glucose (65 - 99 mg/dL) 198 H Lactic Acid (0.7 - 2.1 mmol/L) 1.6 2.8 H Calcium (8.4 - 10.2 mg/dL) 9.2 Total Bilirubin (0.2 - 1.3 mg/dL) 0.7 AST (17 - 59 U/L) 38 ALT (21 - 72 U/L) 41 Alkaline Phosphatase (< 127 U/L) 105 Troponin I (<0.11 ng/ml) < 0.01 Total Protein (6.3 - 8.2 g/dL) 7.3 Albumin (3.5 - 5.0 g/dL) 3.9 Globulin (1.9 - 4.2 gm/dL) 3.4 Albumin/Globulin Ratio (1.1 - 2.2 %) 1.1 Hematology CBC w Diff NO MAN DIFF REQ WBC (4.8 - 10.8 /CUMM) 9.6 RBC (4.70 - 6.10 /CUMM) 5.61 Hgb (14.0 - 18.0 G/DL) 15.9 Hct (42 - 52 %) 49.0 MCV (80.0 - 94.0 FL) 87.3 MCH (27.0 - 31.0 PG) 28.2 RDW (11.5 - 14.5 %) 16.0 H Plt Count (130 - 400 /CUMM) 142 MPV (7.4 - 10.4 FL) 8.8 Gran % (42.2 - 75.2 %) 63.4 Lymphocytes % (20.5 - 51.1 %) 17.5 L Monocytes % (1.7 - 9.3 %) 17.3 H Eosinophils % (0 - 5 %) 1.4 Basophils % (0.0 - 2.0 %) 0.4 Absolute Granulocytes (1.4 - 6.5 /CUMM) 6.1 Absolute Lymphocytes (1.2 - 3.4 /CUMM) 1.7 Absolute Monocytes (0.10 - 0.60 /CUMM) 1.7 H Absolute Eosinophils (0.0 - 0.7 /CUMM) 0.1 Absolute Basophils (0.0 - 0.2 /CUMM) 0 PUBS MCHC (33.0 - 37.0 G/DL) 32.3 L Assessment/Plan Assessment: IP Day#2 for 76yo male with PMH significant for right hemiparesis s/p CVA in 2015, HTN and DM admitted for productive cough and deconditioning in the setting of URI. Most recent labs demonstrate creatinine 1.6 down from 1.9. Creatinine 1.6 consistent with baseline confirmed with PCP. Sodium of 136 demonstrates slight hyopnatremia. #1 URI: Cough productive of yellow phlegm developed at home 7 days ago. Per pt, cough is improving, still productive of yellow phlegm. Pt has not developed fever, cough symptoms are improving, and pt denies chest pain and SOB. Etiology of productive cough likely viral. Continue to monitor vital signs and for worsening symptoms. #2 deconditioning secondary to URI: per collateral information from spouse, pt has been weaker and more lethargic since developing cough 7 days ago. is sole caregiver at home and has had increased difficulty transferring him as he is mainly bed/wheelchair bound and strength/mobility is decreased after onset of illness one week ago. Pt was seen by PT this morning and refused to participate in therapy depsite maximal encouragement and motivation. Per PT, pt was educated on the benefits of getting out of bed. #3 DVT prophylaxis: Pt refusing to use DVT prophylactic leg compression wraps. Continuing on heparin subcu. Plan: -Continue to monitor vitals and respiratory sx -PT to return this afternoon and reattempt therapy with patient -PT to assess for appropriate placement -Subcutaneous heparin for DVT prophylaxis -continue on home meds: amlodipine, aspirin, atorvastatin, docusate, insulin, lisinopril, omeprazole, quetiapine, metoprolol -Labs: repeat electrolytes tomorrow AM
[2016-10-10 14:35] VITALS: BP 116/67
[2016-10-10 22:31] VITALS: BP 110/70
[2016-10-11 07:26] VITALS: BP 135/84
--- NOTE | 2016-10-11 08:41 | PN- Housestaff ---
DEEPAK CLEMENT,ALIZA 10/11/16 0840: Subjective Follow-up For: URI Deconditioning History of stroke with neurological deficit Subjective: Patient seen and examined. He is seen sitting upright in his chair at bedside resting comfortably. He appears to be in no acute distress. He reports feeling well today but does admit to some persistent weakness. He denies any new subjective complaints. Additionally denies any blurred/double vision, lightheadedness/dizziness, headache, fever, chills, chest pain, palpitations, shortness of breath, nausea, vomiting, diarrhea. No overnight events reported. Review of Systems Constitutional: Reports: see HPI. Objective Last 24 Hrs of Vital Signs/I&O Vital Signs Date Time Temp Pulse Resp B/P Pulse O2 O2 Flow FiO2 Ox Delivery Rate 10/11 1038 88 124/76 10/11 1038 88 124/76 10/11 1037 88 12476 10/11 0726 98.5 82 18 135/84 95 Room Air 10/11 0000 Room Air 10/10 2231 98.9 79 18 110/70 96 Room Air 10/10 2212 110/70 10/10 1435 98.8 66 18 116/67 97 Room Air Intake & Output 10/11 1600 10/11 0800 10/11 0000 Intake Total 120 120 Output Total Balance 120 120 Intake, Oral 120 120 Physical Exam General Appearance: Alert, Oriented X3, Cooperative, No Acute Distress Other Physical Findings: General -well-developed, well-nourished elderly man in no acute distress HEENT - NCAT, PERRL, EOMI, anicteric sclera, obvious facial droop Cardio - S1, S2 w/o murmurs/gallops/rubs Resp - CTA bilaterally w/o wheezing/rhochi/crackles GI - soft, nontender, nondistended, bowel sounds present Neuro - Awake and alert, CN II - XII grossly intact, residual right sided hemiparesis Extremities -normal pulses, no cyanosis/clubbing/edema Current Medications: Current Medications Sig/Gavin Start time Last Medication Dose Route Stop Time Status Admin Acetaminophen 650 MG Q6P PRN 10/08 1900 AC PO Amlodipine Besylate 5 MG DAILY 10/08 2005 AC 10/11 PO 1038 Aspirin Buffered 81 MG DAILY 10/09 1000 AC 10/11 PO 1037 Atorvastatin Calcium 80 MG 1700 10/08 2014 AC 10/10 PO 1721 Docusate Sodium 100 MG DAILY 10/09 1000 AC 10/11 PO 1037 Guaifenesin 10 ML Q6P PRN 10/10 1815 AC 10/10 PO 1853 Heparin Sodium 5,000 UNIT Q8 10/08 220 AC 10/11 (Porcine) SC 0658 Ibuprofen 600 MG Q6P PRN 10/08 1900 AC PO Insulin Aspart 0 TIDAC 10/09 0800 AC 10/10 SC 1502 Lisinopril 2.5 MG DAILY 10/08 2005 AC 10/11 PO 1038 Metoprolol Tartrate 25 MG BID 10/08 220 AC 10/11 PO 1037 Omeprazole 20 MG DAILY 10/09 1000 AC 10/11 PO 1038 Quetiapine Fumarate 25 MG AT BEDTIME NEED.. 10/08 2014 AC PO Last 24 Hrs of Lab/Marquis Results Last 24 Hrs of Labs/Mics: Laboratory Tests 10/11/16 0655: Anion Gap 14, Estimated GFR 39 L, BUN/Creatinine Ratio 18.2 Assessment/Plan Assessment: Patient reports clinical improvement in his upper respiratory symptoms with only a mild persistence of his cough. He continues to deny any fever or shortness of breath and otherwise feels fine, other than a persistent weakness. He is to be discharged to [facility] facility today for further rehabilitation. He is to continue all of his previous home medications and to follow-up with his primary care provider Lisa Cullen MD in her office within 2 weeks of discharge. Patient's renal insufficiency has been monitored and treated with intravenous fluid hydration and has been stable. Problem list: -Upper respiratory infection -Deconditioning -History of CVA with right-sided hemiparesis Plan: -Gen. medicine -PT assessment -Continue home medications -DVT prophylaxis -DNR/DNI Problem List: 1. Upper respiratory disease Pain Ratin Pain Location: None Pain Goal: Remain pain free Pain Plan: See assessment Tomorrow's Labs & Rationales: None RAMONITA MCCORMACK 10/11/16 0945: Attending MD Review Statement Attending Statement Attending MD Statement: examined this patient, discuss w/resident/PA/ROLL UP MACHINE OPERATOR, agreed w/resident/PA/ROLL UP MACHINE OPERATOR, discussed with family, reviewed EMR data (avail), discussed with nursing, discussed with case mgmt, reviewed images Attending Assessment/Plan: No issues overnight reported by nursing staff. Patient reports very good appetite. Denies any pain. Denies any difficulty breathing. He is not requiring oxygen supplementation. Recommendations: - Since he has not been deemed safe to return home he'll remain in the hospital until a correction facility has accepted him. -creatinine is stabilising. awating placement. no acute issues. follow
--- NOTE | 2016-10-11 10:59 | Patient Discharge Instructions ---
Discharge Instructions General Discharge Information You were seen/treated for: Deconditioning FELIX Upper respiratory viral infection You had these procedures: None Special Instructions: Follow up with the PCP in a week after discharge Diet Continue normal diet: Yes Recommended Diet: Diabetic Acute Coronary Syndrome Inclusion Criteria At DC or during hospital stay patient has or had the following: ACS DIAGNOSIS No Discharge Core Measures Meds if any: Prescribed or Continued at Discharge Meds if any: NOT Prescribed or Continued at Discharge Congestive Heart Failure Inclusion Criteria At DC or during hospital stay patient has or had the following: CHF DIAGNOSIS No Discharge Core Measures Meds if any: Prescribed or Continued at Discharge Meds if any: NOT Prescribed or Continued at Discharge Cerebrovascular accident Inclusion Criteria At DC or during hospital stay patient has or had the following: CVA/TIA Diagnosis No Discharge Core Measures Meds if any: Prescribed or Continued at Discharge Meds if any: NOT Prescribed or Continued at Discharge Venous thromboembolism Inclusion Criteria VTE Diagnosis No VTE Type NONE VTE Confirmed by (Test) NONE Discharge Core Measures - Per Current guidelines, there needs to be overlap - treatment for the first 5 days of Warfarin therapy. - If discharged on Warfarin prior to 5 days of - overlap therapy, the patient will need to be - assessed for post discharge needs including - *Post discharge parental anticoagulation - *Warfarin and/or parental anticoagulation education - *Follow up date to check INR post discharge At least 5 days overlap therapy as Inpatient No Meds if any: Prescribed or Continued at Discharge Note: Overlap Therapy is Warfarin and Anticoagulant Meds if any: NOT Prescribed or Continued at Discharge
--- NOTE | 2016-10-11 11:00 | Discharge Summary ---
Visit Information Visit Dates Admission Date: 10/08/16 Discharge Date: 10/11/16 Hospital Course Course Attending Physician: ORLANDO LAWS M.D Primary Care Physician: AVELINO CLEMENT,[facility] Course: 76-year-old man with significant past medical history of CVA with right-sided paresis, hypertension, diabetes mellitus seen for evaluation of cough and weakness on 10/08/16. Collateral information obtained from during this time revealed that patient was having a yellow productive cough 5 days prior to evaluation and appeared weaker without any subjective fever. His also noted similar symptoms in this time. Patient lives at home with his whom provides most of his care with help of a home health aide, however she admits to increasing difficulty in caring for her especially when he is weaker than his baseline. Patient was admitted to the general medicine floor for evaluation of deconditioning and weakness for which he was given intravenous fluid hydration and followed off of antibiotics. Physical therapy assessment determined that patient was an assist of 2 and would most likely benefit from short-term rehabilitation. Serum chemistries were monitored and patient was continued on intravenous fluid hydration with stable creatinine. Patient is to be discharged to [facility] for further rehabilitation. Allergies: Coded Allergies: No Known Allergies (10/08/16) Significant Procedures: EXAM TYPE: RAD - XRY-PORTABLE CHEST XRAY IMPRESSION: Low lung volumes. Otherwise unremarkable examination with no evidence of consolidative disease or effusion. Disposition Summary Disposition Principal Diagnosis: Upper respiratory infection Additional Diagnosis: Acute kidney injury Deconditioning Discharge Disposition: SNF Discharge Instructions General Discharge Information Code Status: Do Not Resucitate/Intubat Patient's Diet: Diabetic diet Patient's Activity: Per physical therapy assessment Follow-Up Instructions/Appts: Follow-up with your primary care provider and multiple specialists after discharge for further evaluation and care. Medications at Discharge Discharge Medications: Continue taking these medications: Lisinopril (Lisinopril) 2.5 MG TABLET 1 Tablet ORAL DAILY Qty = 30 Insulin Regular, Human (Humulin R) 100 UNIT/ML VIAL Qty = 10 Instructions: 9AM 11 UNITS, LUNCH 10 UNITS, DINNER 8 UNITS Quetiapine Fumarate (Quetiapine Fumarate) 25 MG TABLET 1 Tablet ORAL TAKE AT BEDTIME as needed for SLEEP Qty = 90 Amlodipine Besylate (Amlodipine Besylate) 5 MG TABLET 1 Tablet ORAL DAILY Qty = 90 Atorvastatin Calcium (Atorvastatin Calcium) 80 MG TABLET 1 Tablet ORAL Q5PM Qty = 90 Metoprolol Tartrate (Metoprolol Tartrate) 25 MG TABLET 1 Tablet ORAL TWICE DAILY Qty = 60 Omeprazole (Omeprazole) 20 MG CAPSULE.DR 1 Tablet ORAL DAILY Qty = 90 Multivitamin (Multivitamins) 1 EACH CAPSULE 1 Tablet ORAL DAILY Docusate Sodium (Colace) 100 MG CAPSULE 1 Capsule ORAL DAILY Aspirin (Ecotrin*) 81 MG TABLET.DR 1 Tablet ORAL DAILY Copies To: AVELINO CLEMENT,NITIN
[2016-10-11] MEDS ORDERED: LANTUS100 UNIT/1 SC (11:12)
[2016-10-11 12:56] VITALS: BP 124/76
== END 2016-10-11 14:15 | DRG 683 ==
LOC: ENRESERVDT → ENRESERVTM → ERH 13:23 → ERHI 16:04 → 2NB 16:04 → ENPENDDIS 16:04 → 2NB 16:04
PROVIDERS: Physician Assistant; ADMIT Internal Medicine
DX: N17.9 Acute kidney failure, unspecified (principal); I69.351 Hemiplegia and hemiparesis following cerebral infarction affecting right dominant side; E87.2 Acidosis; E11.9 Type 2 diabetes mellitus without complications; E86.0 Dehydration; Z66 Do not resuscitate; I10 Essential (primary) hypertension; Z79.4 Long term (current) use of insulin; E78.5 Hyperlipidemia, unspecified; K21.9 Gastro-esophageal reflux disease without esophagitis; J06.9 Acute upper respiratory infection, unspecified
CPT/HCPCS: 2NBSP; 82436; 87040; 87070; 87804; 87804-59; 93005; 93010; 96360; 97110-GO; 97112-GO; 97161-GP; 97530-GO; J1644